=== PATIENT | male | born 1940 | race Caucasian/White ===

== ENCOUNTER 2020-03-18 10:25 | Emergency (ER) | payer OTHER, MEDICARE ==
[~2020-03-18] VITALS: Ht 179.1 cm; Wt 71.8 kg
--- NOTE | 2020-03-18 11:15 | NUR ---
Pt transported to CT
[2020-03-18 11:19] LABS: BASOPHILS % (AUTO) 0.2 % (0-1); EOSINOPHILS % (AUTO) 0.2 % (0-6); HEMATOCRIT 37.5 % (42.0-52.0); HEMOGLOBIN 12.2 g/dl (14.0-17.9); LYMPHOCYTES # (AUTO) 0.9 X10'3 (1.1-4.8); LYMPHOCYTES % (AUTO) 6.1 % (21-51); MEAN CORPUSCULAR HEMOGLOBIN 31.9 PG (27.0-31.0); MEAN CORPUSCULAR HGB CONC 32.7 g/dL (33.0-36.5); MEAN CORPUSCULAR VOLUME 97.7 FL (78-98); MEAN PLATELET VOLUME 9.3 FL (7.4-10.4); MONOCYTES % (AUTO) 6.6 % (2-12); NEUTROPHILS # (AUTO) 12.4 X10'3 (1.8-7.7); NEUTROPHILS % (AUTO) 86.9 % (42-75); PLATELET COUNT 254 X10'3 (140-440); RED BLOOD COUNT 3.84 X10'6 (4.70-6.10); RED CELL DISTRIBUTION WIDTH 14.5 % (11.5-14.5); WHITE BLOOD COUNT 14.3 X10'3 (4.5-11.0)
[2020-03-18 11:37] LABS: ALANINE AMINOTRANSFERASE 26 U/L (12-78); ALBUMIN 2.9 G/DL (3.4-5.0); ALBUMIN/GLOBULIN RATIO 0.7 (1.1-1.5); ALKALINE PHOSPHATASE 143 IU/L (46-116); ANION GAP 7 (8-16); ASPARTATE AMINO TRANSFERASE 20 U/L (10-37); BILIRUBIN,TOTAL 0.6 MG/DL (0.1-1.0); BLOOD UREA NITROGEN 28 MG/DL (7-18); BUN/CREATININE RATIO 31.1 (5.4-32.0); CALCIUM 9.1 MG/DL (8.5-10.1); CHLORIDE 103 MMOL/L (99-107); GLUCOSE 131 MG/DL (70-104); SODIUM 138 MMOL/L (135-145); TOTAL PROTEIN 6.8 G/DL (6.4-8.2); eGFR 82 ML/MIN
[2020-03-18 11:38] LABS: PARTIAL THROMBOPLASTIN TIME 26 SECONDS (22-32)
[2020-03-18 11:54] LABS: GIANT PLATELET FEW; LARGE PLATELETS FEW; PLATELET ESTIMATE NORMAL; POLYCHROMASIA FEW; TOTAL CELLS COUNTED 100; TOXIC VACUOLATION FEW
[2020-03-18 11:56] LABS: SPHEROCYTES FEW; TOXIC GRANULATION 2+
[2020-03-18 11:57] LABS: SMUDGE CELLS FEW
[2020-03-18 12:32] LABS: CLARITY,URINE CLEAR (Clear); COLOR,URINE YELLOW (Yellow); GLUCOSE, URINE NEGATIVE (Neg); KETONES,URINE NEGATIVE (Neg); LEUKOCYTE ESTERASE ,URINE NEGATIVE (Neg); NITRITES, URINE NEGATIVE (Neg); OCCULT BLOOD,URINE NEGATIVE (Neg); PROTEIN,URINE NEGATIVE (Neg); UA COLLECTION TYPE CLN CATCH MIDSTREAM; UROBILINOGEN,URINE 0.2 E.U/dL (0.2-1.0)
[2020-03-18 15:30] VITALS: BP 119/60
== END 2020-03-18 15:37 | disposition home or self-care (01) ==
LOC: ER 10:25
DX: M48.56XA Collapsed vertebra, not elsewhere classified, lumbar region, initial encounter for fracture (principal); I10 Essential (primary) hypertension; J44.9 Chronic obstructive pulmonary disease, unspecified; F41.9 Anxiety disorder, unspecified; Z88.0 Allergy status to penicillin; X58.XXXA Exposure to other specified factors, initial encounter; Y93.89 Activity, other specified; Y92.89 Other specified places as the place of occurrence of the external cause; Y99.8 Other external cause status
CPT/HCPCS: 36415; 71045; 72131; 80053; 81003; 85025; 85610; 85730; 93005; 99285

== ENCOUNTER 2020-05-09 14:11 | Emergency (ER) | payer OTHER, MEDICARE ==
[~2020-05-09] VITALS: Ht 182.9 cm; Wt 64.7 kg
[~2020-05-09 14:11] MED LIST: ACET500C5 PO; ALB0.5UD IH; ALFU10TA10 PO; ATEN-169 PO; BUDE10.2 INH; CHOL400T57 PO; CLON-528 PO; FAMO20TA8 PO; FINA5TAB11 PO; FLUT16SP2 BOTHNARES; LACTC PO; LISI-600 PO; PIRF267C2 PO; POTA20PA40 PO; PRAV40TA3 PO; PRED5TAB PO; SERT25TA PO; TIOT18CA3; VIT1CAPS46 PO
--- NOTE | 2020-05-09 14:19 | NUR ---
1411 Dr Franklin requested DNR from TOA to bed from paramedics. 1417 DNR order obtained, resusitation efforts stopped, pupils fixed 8mm, no pulse detected, PEA on monitor, DOA per MD at 1411. CN Mari to call family and notify them.
[2020-05-09] MEDS ORDERED: rocuronium 10mg/ml inj IV ONE (15:00)
[2020-05-09] MEDS ORDERED: epiNEPHrine 0.1mg/ml 10ml syringe ONE (15:00)
[2020-05-09] MEDS ORDERED: etomidate 2mg/ml inj. ONE (15:00)
--- NOTE | 2020-05-09 15:02 | NUR ---
Jennifer Bang [facility] [phone].
--- NOTE | 2020-05-09 17:05 | NUR ---
Spoke with daughter at this time, stated family is on their way and they have chosen [employer] as mort[employer] of choice. 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
--- NOTE | 2020-05-09 18:11 | NUR ---
Family at bedside to pay respects, aware [facility] has arrived to package pick up remains. Report given to Kirsten ENGLE.
== END 2020-05-09 18:30 | disposition expired ==
LOC: ER 14:12
DX: I46.9 Cardiac arrest, cause unspecified (principal); I10 Essential (primary) hypertension; J44.9 Chronic obstructive pulmonary disease, unspecified; F41.9 Anxiety disorder, unspecified; Z72.89 Other problems related to lifestyle; Z88.0 Allergy status to penicillin; Z79.899 Other long term (current) drug therapy
CPT/HCPCS: 87635; 99285; J0171